=== PATIENT | female | born 1930 | race Caucasian/White ===

== ENCOUNTER 2018-04-18 13:59 | Emergency (ER) | payer OTHER ==
[~2018-04-18] VITALS: Ht 165.1 cm; Wt 98.9 kg
[~2018-04-18 13:59] MED LIST: ANTIHIPERTENSIVO; CAPOTEN25 MG; CARDIZEM30 MG PO; EC-NAPROSYN500 MG PO; NAPROSYN125 MG/5 M PO; NEURONTIN600 MG PO; PANADOL MAXIMU500 MG PO; TRAMADOL HCL50 MG PO; TROMBONEX CAPSU1 CAP
[2018-04-18] MEDS ORDERED: NORVASC5 MG (14:10)
== END 2018-04-18 16:04 | disposition home or self-care (01) ==
LOC: ER 13:59
DX: B34.9 Viral infection, unspecified (principal); J11.1 Influenza due to unidentified influenza virus with other respiratory manifestations

== ENCOUNTER 2019-01-02 09:17 | Emergency (ER) | payer OTHER ==
[~2019-01-02] VITALS: Ht 165.1 cm; Wt 90.7 kg
[~2019-01-02 09:17] MED LIST changes: +NORVASC5 MG
== END 2019-01-02 10:01 | disposition home or self-care (01) ==
LOC: ER 09:17
DX: M54.32 Sciatica, left side (principal)